=== PATIENT | male | born 1965 | race Caucasian/White ===

== ENCOUNTER 2020-04-14 17:09 | Outpatient (CLI) | payer OTHER, SELFPAY ==
--- NOTE | ~2020-04-14 | XR_ITS ---
EXAMINATION: XR hand LT min 3V DATE: 04/14/2020 17:23 INDICATION: 10 joint pain greatest at the first carpal metacarpal joint. TECHNIQUE: Posteroanterior, oblique and lateral views of the left hand were obtained. COMPARISON: None. FINDINGS: Alignment is normal. No fracture. Polyarticular osteoarthritis, moderate severity at the first carpom etacarpal and second distal interphalangeal joint and mild at the distal radioulnar, third metacarpop halangeal and third-fifth distal interphalangeal joints. No cortical erosions to suggest an inflammat ory arthritis. IMPRESSION: 1. Mild to moderate polyarticular osteoarthritis in the left hand and wrist. Reviewed, dictated and finalized at location A. [facility] [employer]
== END 2020-04-14 17:10 | disposition home or self-care (01) ==
LOC: CHSIMG 17:13
PROVIDERS: PCP Family Medicine; Visit Provider Family Medicine
DX: M25.542 Pain in joints of left hand (principal)
CPT/HCPCS: 73130

== ENCOUNTER 2020-05-27 16:48 | Outpatient (RCR) | payer OTHER, SELFPAY ==
--- NOTE | 2020-05-29 16:30 | PTOPEVAL ---
Thank you for referring Connor Acharya to [facility].? The patient is scheduled to be seen for therapy? __2__x/week for 8 visits. Please review, sign, date and return this plan of care ADRIANA. I agree with and certify that the following plan of care is medically necessary. Referring Physician Date Admitting Provider: Attending Provider: Lakhwinder Farr MD Referring Provider: *PT Outpatient Evaluation Start: 05/27/20 16:55 Freq: Status: Active Protocol: Document 05/27/20 16:58 BRIAN (Rec: 05/27/20 17:22 [email or web address]) Therapy Assessment Status Assessment Status Assessment Status Evaluation Evaluation Information Problem Diagnosis low back pain, spinal stenosis L4-5, L5-S1 Onset 04/23/20 Subjective Information Pt. reports he was pulling a Query Text:As Reported By Patient/ hose at work and felt a pain Family in his back. He states that he was unable to pull the hose any further after onset of pain. He states that the pain has improved since the initail incident. He states that he has returned to full duty work. He still notes pain in the middle of the back . He reports that his pain is constant. He states that lifting and driving seem to aggravate pain most. Pt. reports that pain is most noted after long period of sitting or getting up in the morning. Pt. reports that his goal is to have less back pain. 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
--- NOTE | 2020-06-20 17:22 | PTOPEVAL ---
Thank you for referring Connor Acharya to [facility].? The patient is scheduled to be seen for therapy? ____x/week for ___ weeks. Please review, sign, date and return this plan of care ADRIANA. I agree with and certify that the following plan of care is medically necessary. Referring Physician Date Admitting Provider: Attending Provider: Lakhwinder Farr MD Referring Provider: *PT Outpatient Evaluation Start: 05/27/20 16:55 Freq: Status: Active Protocol: Document 06/20/20 16:50 ACR (Rec: 06/20/20 17:21 [email or web address] [id number]) Therapy Assessment Status Assessment Status Assessment Status Discharge Evaluation Information Problem Diagnosis low back pain, spinal stenosis Onset 04/23/20 Subjective Information Patient states that he is Query Text:As Reported By Patient/ about 100% improved since the Family beginning of therapy. He states that he may have a little pain after a long day of driving, but nothing as bad as the beginning of therapy. He has no difficulty performing his daily activities and is not hindered by pain. Pain Assessment Timing of Pain Assessment Timing of Pain Assessment Pre-Treatment Self Report Self Report Pain Level 0 Pain Score Pain Score 0: Self Report Cervical and Lumbar ROM Lumbar ROM Lumbar Flexion Active Floor Query Text:Hands to: Lumbar Extension (0-40) 30 Query Text:Active in Degrees Lumbar Lateral Flexion Right (0-40) 35 Query Text:Active in Degrees Lumbar Lateral Flexion Left (0-40) 35 Query Text:Active in Degrees Lateral Rotation Right (0-45) 35 Query Text:Active in Degrees Lateral Rotation Left (0-45) 35 Query Text:Active in Degrees Lower Extremity Muscle Strength Testing General Lower Extremity Strength Gross Lower Extremity Strength B hip abduction 5/5 B hip extension 5/5 B hip flexion 5/5 B knee flexion 5/5 B knee extension 5/5 B ankle DF 5/5 Muscle Length Testing Muscle Length Testing Piriformis w/Hip Flexion <90 Degrees (R) Mild Tightness,(L) Mild Tightness Left Hamstring Length 15 Query Text:(90 - 90 Position) Right Hamstring Length 10 Query Text:(90 - 90 Position) Palpation Assessment Palpation Palpation Patient has no tenderness to
== END 2020-06-20 09:18 | disposition home or self-care (01) ==
LOC: CHSPT 16:48
PROVIDERS: PCP Family Medicine; Visit Provider Family Medicine
DX: M54.5 Low back pain (principal); M48.00 Spinal stenosis, site unspecified
CPT/HCPCS: 97012; 97014; 97110; 97161; G0283

== ENCOUNTER 2020-11-03 16:56 | Outpatient (CLI) | payer OTHER, SELFPAY ==
--- NOTE | ~2020-11-03 | XR_ITS ---
XR lumbar spine 2-3V DATE: 11/03/2020 17:32 INDICATION: Chronic low back pain radiating to both legs. No injury. TECHNIQUE: AP, lateral, coned lateral lumbosacral views COMPARISON: None FINDINGS: There is moderate degenerative disc disease and spurring at L1-2. There is mild degenerativ e disc disease at L2-3, L3-4, L4-5 and moderately severe degenerative disc disease at L5-S1. No fracture or bone destruction or spondylolisthesis. The included lower thoracic and lumbar pedicles are intact. The sacroiliac joints are normal. IMPRESSION: Multilevel degenerative disc disease Reviewed, dictated and finalized at location B.
--- NOTE | ~2020-11-03 | XR_ITS ---
XR knee LT 3V DATE: 11/03/2020 17:32 INDICATION: Left knee diffuse pain. No injury. TECHNIQUE: AP, lateral and sunrise views COMPARISON: None FINDINGS: No fracture or dislocation or joint effusion. No periosteal reaction or bone destruction. N o radiopaque intra-articular loose body or chondrocalcinosis. Joint spaces are relatively preserved. IMPRESSION: No significant abnormality Reviewed, dictated and finalized at location B. IMPRESSION: No significant abnormality
--- NOTE | ~2020-11-03 | XR_ITS ---
XR ankle RT min 3V DATE: 11/03/2020 17:31 INDICATION: Right ankle pain for 3 weeks. No injury. TECHNIQUE: 4 views COMPARISON: None FINDINGS: There is a long plate with multiple screws along the distal fibular shaft and lateral malle olus. There is extensive bony bridging of the distal tibial and fibular diametaphyseal area across th e interosseous membrane. No recent fracture or dislocation of the ankle or disruption of the ankle mortise is detected. There is osteoarthritis at the tibiotalar joint. There is slight plantar calcaneal enthesopathy. 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
== END 2020-11-03 16:57 | disposition home or self-care (01) ==
LOC: CHSIMG 16:59
PROVIDERS: PCP Family Medicine; Visit Provider Family Medicine
DX: M25.562 Pain in left knee (principal); M25.571 Pain in right ankle and joints of right foot; M48.07 Spinal stenosis, lumbosacral region
CPT/HCPCS: 72100; 73562; 73610

== ENCOUNTER 2020-11-22 06:42 | Outpatient (CLI) | payer OTHER, SELFPAY ==
--- NOTE | ~2020-11-22 | MR_ITS ---
EXAMINATION: MR lumbar spine wo con DATE: 11/22/2020 07:39 INDICATION: Lumbar spinal stenosis. TECHNIQUE: Magnetic resonance imaging (MRI) of the lumbar spine was performed without intravenous con trast. Sequences included sagittal T2-weighted FSE, sagittal T2-weighted FS FSE, sagittal T1-weighted FSE, and axial T2-weighted FSE. COMPARISON: Lumbar spine radiograph 11/03/2020 FINDINGS: Bone alignment is normal. Vertebral body heights are normal. There is mildly decreased disc height at L4-L5 and moderately decreased disc height at L5-S1 with endplate remodeling. There are cy sts in the kidneys measuring up to 1.3 cm on the right. The following disc levels are specifically di scussed: L1-L2: The disc does not extend beyond the endplate margin. There is mild bilateral facet joint osteo arthritis. There is mild left neural foraminal stenosis. There is no central canal stenosis. L2-L3: The disc does not extend beyond the endplate margin. There is mild bilateral facet joint osteo arthritis. There is no neural foraminal stenosis. There is no central canal stenosis. L3-L4: The disc does not extend beyond the endplate margin. There is mild bilateral facet joint osteo arthritis. There is no neural foraminal stenosis. There is no central canal stenosis. L4-L5: The disc is bulging with superimposed central extrusion. There is mild bilateral facet joint o steoarthritis. There is mild bilateral neural foraminal stenosis. There is mild central canal stenosi s. L5-S1: The disc is bulging and has an annular fissure. There is moderate bilateral facet joint osteoa rthritis. There is severe right and moderate left neural foraminal stenosis. There is mild central ca nal stenosis. There is severe stenosis of right lateral recess and moderate stenosis of left lateral recess. IMPRESSION: 1. Moderate lumbar spondylosis. Reviewed, dictated and finalized at location A.
== END 2020-11-22 06:43 | disposition home or self-care (01) ==
LOC: CHSIMG 06:45
PROVIDERS: PCP Family Medicine; Visit Provider Family Medicine
DX: M48.07 Spinal stenosis, lumbosacral region (principal); G89.29 Other chronic pain
CPT/HCPCS: 72148